=== PATIENT | male | born 2000 | race Caucasian/White ===

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

== ENCOUNTER 2022-10-06 17:33 | Emergency (ER) | payer OTHER ==
[~2022-10-06] VITALS: Ht 180.3 cm; Wt 57.8 kg
[2022-10-06] MEDS ORDERED: NORCO, ANEXSIA 5/325MG TABLET (HYDROcodone/ACETAMINOPHEN) PO ONE (19:50)
[2022-10-06] MEDS ORDERED: NORCO 5/325MG TABLET (HOME DOSE PACK) PO ONE (21:20)
[2022-10-06 22:38] VITALS: BP 120/71
[2022-10-10] MEDS ORDERED: PERCOCET PO (14:56)
== END 2022-10-06 22:44 | disposition home or self-care (01) ==
LOC: M ED 17:33
DX: S52.502A Unspecified fracture of the lower end of left radius, initial encounter for closed fracture (principal); S52.615A Nondisplaced fracture of left ulna styloid process, initial encounter for closed fracture; W01.0XXA Fall on same level from slipping, tripping and stumbling without subsequent striking against object, initial encounter; Y92.017 Garden or yard in single-family (private) house as the place of occurrence of the external cause; Y93.67 Activity, basketball; F17.290 Nicotine dependence, other tobacco product, uncomplicated; H40.9 Unspecified glaucoma

== ENCOUNTER → 2022-10-07 | Outpatient (CLI) | payer OTHER ==
[~2022-10-07] MED LIST: PERCOCET PO
== END ==
LOC: M SOG 14:05
PROVIDERS: ATTEND Physician Assistant
DX: S52.532A Colles' fracture of left radius, initial encounter for closed fracture (principal); W18.30XA Fall on same level, unspecified, initial encounter; Y92.009 Unspecified place in unspecified non-institutional (private) residence as the place of occurrence of the external cause

== ENCOUNTER 2022-10-12 09:49 | Day surgery (SDC) | payer OTHER ==
[~2022-10-12] VITALS: Ht 180.3 cm; Wt 57.8 kg
[~2022-10-12 09:49] MED LIST changes: +ceFAZolin SOD 2 GM in IV 1 EA IV ONE
[2022-10-12] MEDS ORDERED: ROPIvacaine 0.5% 30ML VIAL PN ONE (10:05)
[2022-10-12] MEDS ORDERED: LR 1,000 ML IV SCH ×2 (10:05→14:20)
[2022-10-12] MEDS ORDERED: fentaNYL 100 MCG/2 ML INJECTION IV PRN ×2 (10:05→14:20)
[2022-10-12] MEDS: MIDAZOLAM INJ 2MG/2ML VIAL IV PRN (11:30)
[2022-10-12] MEDS ORDERED: BUPIVACAINE HCL 0.25% 30ML VIAL As Ordered ONE (12:48)
[2022-10-12] MEDS ORDERED: BACITRACIN OINTMENT 30GM TUBE As Ordered ONE (12:48)
[2022-10-12] MEDS ORDERED: propofoL 200 MG/20 ML VIAL As Ordered ONE (13:24)
[2022-10-12] MEDS ORDERED: ACETAMINOPHEN 1000MG 100ML IV BAG As Ordered ONE (13:24)
[2022-10-12] MEDS ORDERED: fentaNYL 100 MCG/2 ML INJECTION As Ordered ONE (13:24)
[2022-10-12] MEDS ORDERED: ONDANSETRON 4MG 2ML VIAL As Ordered ONE (13:24)
[2022-10-12] MEDS ORDERED: LIDOCAINE 2% 100MG/5ML SDV (FOR ANES.) As Ordered ONE (13:24)
[2022-10-12] MEDS ORDERED: METOCLOPRAMIDE INJ 10MG/2ML VIAL As Ordered ONE (13:24)
[2022-10-12] MEDS ORDERED: ROCURONIUM BROMIDE 50MG/5ML VIAL As Ordered ONE (13:24)
[2022-10-12] MEDS ORDERED: SUGAMMADEX SODIUM 500 MG/5 ML VIAL (BRIDION) As Ordered ONE (13:24)
[2022-10-12] MEDS ORDERED: MIDAZOLAM INJ 2MG/2ML VIAL As Ordered ONE (13:24)
[2022-10-12] MEDS ORDERED: KETOROLAC 60MG 2ML VIAL As Ordered ONE (14:04)
[2022-10-12] MEDS ORDERED: ONDANSETRON 4MG 2ML VIAL IV PRN (14:20)
[2022-10-12] MEDS ORDERED: MORPHINE 2 MG/ML 1ML VIAL IV PRN (14:20)
[2022-10-12] MEDS ORDERED: oxyCODONE 5MG TAB PO PRN (14:20)
[2022-10-12] MEDS ORDERED: METOCLOPRAMIDE INJ 10MG/2ML VIAL IV PRN (14:20)
[2022-10-12] MEDS ORDERED: OXYC-517 PO (14:38)
[2022-10-12 15:15] VITALS: BP 125/84
== END 2022-10-12 15:45 | disposition home or self-care (01) ==
LOC: M SDC 09:49
PROVIDERS: ATTEND Orthopaedic Surgery Hand Surgery
DX: S52.552A Other extraarticular fracture of lower end of left radius, initial encounter for closed fracture (principal); X58.XXXA Exposure to other specified factors, initial encounter; Y92.89 Other specified places as the place of occurrence of the external cause; R51.9 Headache, unspecified; Z79.891 Long term (current) use of opiate analgesic
CPT/HCPCS: 25607; 76000; C1713; J0131; J0690; J1100; J1885; J2250; J2405; J2765; J3010

== ENCOUNTER → 2022-10-25 | Outpatient (CLI) | payer OTHER ==
[~2022-10-25] MED LIST changes: +OXYC-517 PO; -ceFAZolin SOD 2 GM in IV 1 EA IV ONE
== END ==
LOC: M SOG 08:04
PROVIDERS: ATTEND Orthopaedic Surgery Hand Surgery
DX: S52.532D Colles' fracture of left radius, subsequent encounter for closed fracture with routine healing (principal); W18.30XD Fall on same level, unspecified, subsequent encounter; Y92.009 Unspecified place in unspecified non-institutional (private) residence as the place of occurrence of the external cause

== ENCOUNTER → 2023-01-30 | Outpatient (CLI) | payer OTHER | LOC: M SOG 13:09 | PROVIDERS: ATTEND Physician Assistant | DX: S52.502D Unspecified fracture of the lower end of left radius, subsequent encounter for closed fracture with routine healing (principal) ==